=== PATIENT | female | born 1975 | race Caucasian/White ===

== ENCOUNTER 2017-02-12 01:29 | Inpatient (IN) | payer OTHER ==
--- NOTE | 2017-01-28 16:05 | History & Physical Pre-Op ---
General Information and [facility] MD Statement: I have seen and personally examined ARIANA THOMAS and documented this H&P. The patient is a 41 year old F who presented with a patient stated chief complaint of low back pain, radiaitng to her right leg, anteriorly and posteriorly to her knee, as well as neck pain, radiating to her right arm with tinglng. Source of Information: patient, old records Exam Limitations: no limitations History of Present Illness: Ariana is a 41-year-old female who has been complaining of progressively worsening low back pain, radiating to her right leg, posteriorly to her knee. She denies any numbness or weakness in her lower extremities but does state the pain is a 6/10 in intensity daily. She denies any bowel or bladder changes. She has had these symptoms, ongoing over the last 15 years but admits to worsening over the last several months. She states the pain is bilateral in her low back, which is worse when bending. She has tried anti-inflammatory medications, acupuncture, prolotherapy, physical therapy, cortisone injections, narcotics, and a TENS unit, all of which have given her minimal and temporary symptom relief. She also complains of neck pain, radiating to her right arm with limited range of motion of the cervical spine. She rates the pain in her neck as a 4-5/10 in intensity, describing it as "tension". She complains of occasional tingling in her right arm but no significant numbness. She denies any significant left sided symptoms. She denies any weakness in her upper extremities nor any dizziness. She does, however, complain of headaches. Due to the fact that Ariana has had progressively worsening symptoms and has failed to respond to conservative measures, she wants nothing more to do with nonsurgical treatment. Her MRI of the lumbar spine shows severe degenerative disc disease and stenosis at L4-5. Her MRI of the cervical spine shows stenosis at C4-5 and C5-6. She has been scheduled for a posterior lumbar decompression and fusion L4-5 with instrumentation, intradiscal cage, and iliac crest bone grafting on 02/12/2017. She was initially scheduled for an anterior cervical decompression fusion C4-C6 but would like to wait on the cervical procedure. She would like to continue with conservative measures. Allergies/Medications Allergies: Coded Allergies: lactose (Mild, GI symptoms 01/28/17) Penicillins (Reacted as a child 01/28/17) Home Med list Cetirizine HCl (Zyrtec) 10 MG TABLET 1 TAB PO DAILY ALLERIES (Reported) Compliance With Home Meds: GOOD Past History Medical History Blood Transfusion Hx: Yes (2 units with child ) Neurological: sinus headaches EENT: allergies, sinusitis Cardiovascular: NONE Respiratory: NONE Gastrointestinal: NONE Hepatic: NONE Renal: NONE Musculoskeletal: chronic back pain, disk herniation, degen joint disease, osteoarthritis, sciatica, spinal stenosis Psychiatric: NONE Endocrine: hyperthyroidism Blood Disorders: anemia Cancer(s): NONE TERMINAL GAUGER SUPERVISOR/Reproductive: NONE Surgical History Pertinent Surgical History: s/p sinus surgery, s/p dental surgery Past Family/Social History Family History Relations & Conditions if any MOTHER (Hyperthyroidism ASCVD). Age 62. FATHER (ASCVD, DM, COPD, TIA, [place], Eye disorders). Age 63. Psychosocial History Where Do You Live? Home Who Do You Live With? spouse, child Primary Language: Botswan[place] Smoking Status: Never Smoked ETOH Use: occasional use Illicit Drug Use: denies illicit drug use Other Social History: with 1 9y/o son Employment History Employment: Employed Profession/Employer: narcotics agent Review of Systems Review of Systems: Remarkable for the above complaints. Exam & Diagnostic Data Last 24 Hrs of Vital Signs/I&O Height: 5' 3.5" Weight: 162lbs Physical Exam General Appearance Alert, Oriented X3, No Acute Distress Skin No Rashes, No Breakdown, No Significant Lesion HEENT Atraumatic, PERRLA, EOMI, Mucous Membr. moist/pink Neck Supple, No JVD, No thryomegaly, +2 Carotid Pulse wo Bruit, No LAD Lymphatic Cervical nl Cardiovascular Regular Rate, Normal S1, Normal S2, No Murmurs Lungs Clear to Auscultation, Normal Air Movement Abdomen Normal Bowel Sounds, Soft, No Tenderness, No Masses Neurological Normal Gait, Normal Speech, Strength at 5/5 X4 Ext, Normal Tone, Sensation Intact, Reflexes 2+, +SLR on the right Extremities No Clubbing, No Cyanosis, No Edema, Normal Pulses Vascular Normal Pulses Last 24 Hrs of Labs/Loyd: Laboratory Tests 02/12/17 0622: Urine Test NEGATIVE Medication List Current Psychiatric Med(s): FeSO4 325mg daily Zyrtec 10mg daily Femien(BCP) daily Advil/Naproxen prn-stopped Tylenol prn pain MVI Calcium/Vit. D daily Assessment/Plan Assessment/Plan: Assessment: 1. Severe DDD/stenosis at L4-5 2. Stenosis at C4-5 and C5-6 Plan: Ariana is scheduled for a posterior lumbar decompression and fusion L4-5 with instrumentation and iliac crest bone grafting on 02/12/2017. She has decided to stage and postpone her anterior cervical decompression and fusion C4-C6 with instrumentation and iliac crest bone grafting for a later date. We discussed the posterior lumbar procedure in full detail as well as the pre-and postoperative course, follow-up care, and anticipated recovery. We also discussed the do's and don'ts and postoperative discharge instructions. We discussed the benefits, alternatives, and risks, not to exclude, , paralysis, infection, bleeding, continued pain, failure of the surgery, need for future surgery, DVT, vascular injury, CSF leak, hoarseness, dysphagia, etc., and given these risks, she still wishes to proceed. She was seen by her primary care physician for preoperative clearance. She will stop all anti-inflammatory medications. Any changes in this patient's plan is based on this patient's outpatient clinical presentation. As Ranked By This Provider Problem List: 1. Hyperthyroidism 2. Seasonal allergies 3. Sinusitis 4. Anemia Copies To: Edil DELGADO,Piter Attending MD Review Statement Attending Statement Attending MD Statement: examined this patient, discuss w/resident/PA/COMPLIANCE COORDINATOR, agreed w/resident/PA/COMPLIANCE COORDINATOR, reviewed images
[~2017-02-12] VITALS: Ht 160 cm; Wt 72.6 kg
[2017-02-12] MEDS ORDERED: ZYRTEC10 M3 PO (06:43)
--- NOTE | 2017-02-12 12:00 | Operative Report ---
Operative/Inv Procedure Report Surgery Date: 02/12/17 Name of Procedure: Sacral laminectomies L4 L5 S1. Discectomy L4 5 L5-S1. Interdiscal cage implant and morselized bone autologous fusion L4 5 L5-S1. Resting of iliac crest right posterior. Lateral intertransverse process fusion L4 5 S1. Pedicle screw fusion bilaterally L4 L5 S1. Use of fluoroscopy neural lysis right L4 nerve root Pre-Operative Diagnosis: Spinal stenosis and anterolisthesis L4 5 L5-S1. Post-Operative Diagnosis: Same additional diagnosis osteoporosis intra-joint nerve roots L5 S1 right side Estimated Blood Loss: 200 Surgeon/Forging Die Sinker: Edil DELGADO,Piter Ashraf M.D. Anesthesia: general endotracheal tube Monitors: Neuro Operative/Procedure Note Note: After adequate general anesthesia the patient's placed in the prone position with all bony prominences padded. The back was sterilely prepped and draped the right anterior iliac crest included. An incision was made in the right posterior iliac crest and carried down lateral to the crest with electrocautery and the Loreta retractor was placed. Osteotomes and curettes used to collect cortical cancellus and cancellus autologous bone graft. During harvesting the bone graft osteoporosis was identified. Wound was irrigated packed with Gelfoam closed in layers with Vicryl suture with yanet in the skin. The midline incision was created sharply and carried down over the dorsal elements with electrocautery at the lumbosacral junction. A metallic object was placed and fluoroscopy was used to identify surgical level. Laminectomies and discectomy performed at L4 5 and L5-S1. The dissection medial to the L4 pedicle on the right side revealed a hyperactive nerve root. Decompression of L5 and S1 on the right side, joint nerve roots were identified exiting the L5-S1 foramen on the right side causing severe stenosis. He was created on that side discectomies were performed a decision was made to instrument both levels with interdiscal cages to avoid nerve compression and continued radiculopathy on the right side due to the conjoined nerve roots. After preparation of the L4 and L5 disc spaces with discectomy and debridement of the endplates trials were used and cages selected packed with autologous bone graft and tamped into position under fluoroscopy. Enterotomies were created and the pedicles of L4 5 and S1 bilaterally. The ball tip probe was used between instrument placement. Pedicle screws were placed with reasonable purchase and all 6 screws. Neuro monitoring was normal on all 6 screws. Screws used in AP and lateral plane during placement screws. Rods were contoured bolted to the screws compression was applied across the cages and the screws were locked. Bone graft was packed over the lateral intertransverse process region from L4 to S1 bilaterally as well as over the perforated facet joints which were perforated with a pencil point bur. A neuro lysis of the L4 nerve root on the right was performed due to its hyperirritability Gelfoam was laid over the laminotomy sites the wound was copiously irrigated closure lumbosacral fascia was performed with absorbable suture as was subcutaneous tissue the skin was closed yanet after placement of sterile dressings the patient was log rolled out of the stretcher.
--- NOTE | 2017-02-12 12:40 | Patient Discharge Instructions ---
Acute Coronary Syndrome Inclusion Criteria At DC or during hospital stay patient has or had the following: ACS DIAGNOSIS No Discharge Core Measures Meds if any: Prescribed or Continued at Discharge Meds if any: NOT Prescribed or Continued at Discharge Congestive Heart Failure Inclusion Criteria At DC or during hospital stay patient has or had the following: CHF DIAGNOSIS No Discharge Core Measures Meds if any: Prescribed or Continued at Discharge Meds if any: NOT Prescribed or Continued at Discharge Cerebrovascular accident Inclusion Criteria At DC or during hospital stay patient has or had the following: CVA/TIA Diagnosis No Discharge Core Measures Meds if any: Prescribed or Continued at Discharge Meds if any: NOT Prescribed or Continued at Discharge Venous thromboembolism Inclusion Criteria VTE Diagnosis No VTE Type NONE VTE Confirmed by (Test) NONE Discharge Core Measures - Per Current guidelines, there needs to be overlap - treatment for the first 5 days of Warfarin therapy. - If discharged on Warfarin prior to 5 days of - overlap therapy, the patient will need to be - assessed for post discharge needs including - *Post discharge parental anticoagulation - *Warfarin and/or parental anticoagulation education - *Follow up date to check INR post discharge At least 5 days overlap therapy as Inpatient No Meds if any: Prescribed or Continued at Discharge Note: Overlap Therapy is Warfarin and Anticoagulant Meds if any: NOT Prescribed or Continued at Discharge
[2017-02-12] MEDS ORDERED: OS-CAL 500+D31 EAC1 PO (12:43)
[2017-02-12] MEDS ORDERED: FERROUS SULFAT325 M2 PO (12:43)
[2017-02-12] MEDS ORDERED: MILK OF MA400 MG/52 PO (12:43)
[2017-02-12] MEDS ORDERED: MULTIVITAMINS1 EAC9 PO (12:43)
[2017-02-12] MEDS ORDERED: DULCOLAX10 M1 RC (12:43)
[2017-02-12] MEDS ORDERED: TYLENOL EXTRA500 M2 PO (12:43)
[2017-02-12] MEDS ORDERED: VITAMIN D31000 UNI2 PO (12:43)
[2017-02-12] MEDS ORDERED: PERCOCET 5-3251 EACH PO (12:43)
[2017-02-12] MEDS ORDERED: COLACE100 M1 PO (12:43)
--- NOTE | 2017-02-12 13:24 | RADIOLOGY REPORT ---
EXAMINATION: XR LUMBOSACRAL SPINE CLINICAL INFORMATION: Lumbar fusion L3-L4, L4-L5, L5-S1. COMPARISON: None TECHNIQUE: 3 intraoperative or scopic images of the lumbar spine. 2 views. Total dose 0.578 mGym2. Fluoroscopic time 0.3 minutes. FINDINGS: The submitted images demonstrate posterior fusion hardware at L4, L5, and S1. Interconnecting lisbeth noted on the right. Alignment is anatomic. Intervertebral disc spacers are noted. IMPRESSION: Fluoroscopic guidance for posterior fusion from L4 to S1. Please refer to operative report for further information.
[2017-02-12 14:01] VITALS: BP 116/80
--- NOTE | 2017-02-12 14:53 | PN- Orthopedic ---
Subjective Subjective: Awake, alert post op Pain is tolerable with meds Denies nausea, has not ambulated yet Objective Vital Signs and I&Os Vital Signs Date Time Temp Pulse Resp B/P B/P Pulse O2 O2 Flow FiO2 Mean Ox Delivery Rate 02/12 1401 97.4 76 18 116/80 99 Nasal 1.0L Cannula 02/12 1400 99 Nasal 2.0L Cannula Intake & Output 02/12 1600 02/12 0800 02/12 0000 02/11 1600 02/11 0800 02/11 0000 Intake Total 100 Output Total Balance 100 Intake, IV 100 Patient 160 lb 160 lb Weight Weight Reported by Patient Measurement Method Physical Exam: VSS, afebrile General: alert and oriented times three Chest: clear anteriorly bilaterally, RRR Abd: soft, good bs Ext: warm, no edema, positive sensate although somewhat numb BLE, good 5/5 JOHN BLE no calf tenderness, ALPS in place Wound: dressing dry Assessment/Plan Assessment/Plan 41yo female s/p L4-S1 morejon/fusion with icbg Pain management Abx 24 hrs PT ordered WBAT ALPS for dvt ppx and early ambulation Likely dc in 48 hours Core Measures Venous Thromboembolism VTE Risk Factors Surgery No Mechanical VTE Prophylaxis d/t N/A MechProphylax Ordered No VTE Pharm Prophylaxis d/t Surgical Contraindication (post op neurosurgery-)
[2017-02-12 22:52] VITALS: BP 118/72
[2017-02-13 06:35] VITALS: BP 118/64
[2017-02-13 09:29] LABS: ABSOLUTE BASOPHIL COUNT 0 /CUMM (0.0-0.2); ABSOLUTE LYMPH COUNT 0.9 /CUMM (1.2-3.4); MEAN PLATELET VOLUME 11.1 FL (7.4-10.4)
[2017-02-13 09:46] LABS: ABSOLUTE EOSINOPHIL COUNT 0 /CUMM (0.0-0.7); ABSOLUTE GRANULOCYTE CT 5.4 /CUMM (1.4-6.5); ABSOLUTE MONOCYTE COUNT 0.6 /CUMM (0.10-0.60); BASOPHIL % 0.2 % (0.0-2.0); EOSINOPHIL % 0.7 % (0-5); GRANULOCYTE % 77.3 % (42.2-75.2); MEAN CORPUSCULAR HGB 28.7 PG (27.0-31.0); MEAN CORPUSCULAR HGB CONC 33.9 G/DL (33.0-37.0); MEAN CORPUSCULAR VOLUME 84.6 FL (81.0-99.0); PLATELET COUNT 102 /CUMM (130-400); RBC DISTRIBUTION WIDTH 13.1 % (11.5-14.5)
[2017-02-13 09:52] LABS: HEMATOCRIT 27.1 % (37-47); RED BLOOD CELL CT 3.21 /CUMM (4.20-5.40)
[2017-02-13 14:46] VITALS: BP 118/62
--- NOTE | 2017-02-13 16:55 | PN- Orthopedic ---
Subjective Subjective: Patient c/o expected postop incisional pain. No leg pain. No N/V. No CP, SOB, fever/chills. Tolerating po. Voiding without difficulty. +Flatus. Tolerating Percocet. Review of Systems: Remarkable for the above complaints. Objective Vital Signs and I&Os Vital Signs Date Time Temp Pulse Resp B/P B/P Pulse O2 O2 Flow FiO2 Mean Ox Delivery Rate 02/13 1446 97.0 95 18 118/62 99 Room Air 02/13 1014 98.9 02/13 0635 98.1 70 18 118/64 98 Room Air 02/12 2252 98.2 80 18 118/72 100 Nasal 2.0L Cannula 02/12 2140 Room Air Intake & Output 02/13 1600 02/13 0800 02/13 0000 02/12 1600 02/12 0800 02/12 0000 Intake Total 800 1210 1260 100 Output Total 850 1700 250 Balance -50 -490 1010 100 Intake, IV 850 300 100 Intake, Oral 800 360 960 Output, Urine 850 1700 250 Patient 160 lb 160 lb Weight Weight Reported by Patient Measurement Method Physical Exam General Appearance: well developed/nourished, alert, awake, mild distress Respiratory: normal breath sounds, no respiratory distress Cardiovascular: regular rate/rhythm Abdomen: normal bowel sounds, soft, non-tender Back: Incision C/D/I. Dressing changed. Extremities: no edema, No calf tenderness. Neurologic/Psychiatric: Neurovascularly intact with no new or worsening gross motor or sensory loss. Skin: intact, normal color, warm/dry Assessment/Plan Assessment/Plan Assessment: S/p PLDF L4-S1 with Instr./ICBG Plan: Continue po Percocet prn pain Ambulate with PT/Nursing. Will F/U in am. Possible D/C tomorrow. Ice prn. Bowel regimen. Problem List: 1. Anemia 2. Sinusitis 3. Seasonal allergies 4. Hyperthyroidism Core Measures Venous Thromboembolism VTE Risk Factors Surgery No Mechanical VTE Prophylaxis d/t N/A MechProphylax Ordered No VTE Pharm Prophylaxis d/t Surgical Contraindication (post op neurosurgery-) Attending MD Review Statement Attending Statement Attending MD Statement: examined this patient, discuss w/resident/PA/MEDICAL COLLECTIONS, agreed w/resident/PA/MEDICAL COLLECTIONS
[2017-02-13 22:16] VITALS: BP 112/66
[2017-02-14 07:00] VITALS: BP 100/62
[2017-02-14 14:55] VITALS: BP 110/64
--- NOTE | 2017-02-14 15:45 | PN- Orthopedic ---
Subjective Subjective: Patient c/o expected postop incisional pain. No leg pain. No preop pain. Alfredito. po. No N/V, fever, chills, CP, SOB. Alfredito. pain meds. Ambulated with PT. + voiding without difficulty. + flatus. No BM yet. Review of Systems: Remarkable for the above complaints. Objective Vital Signs and I&Os Vital Signs Date Time Temp Pulse Resp B/P B/P Pulse O2 O2 Flow FiO2 Mean Ox Delivery Rate 02/14 1455 97.8 98 20 110/64 100 Room Air 02/14 0700 98.2 96 18 100/62 95 Room Air 02/13 2216 97.5 88 20 112/66 98 Room Air Intake & Output 02/14 1600 02/14 0800 02/14 0000 02/13 1600 02/13 0800 02/13 0000 Intake Total 082 137 1728 1260 Output Total 950 443 018 2634 250 Balance -950 350 -50 -490 1010 Intake, IV 850 300 Intake, Oral 750 800 360 960 Output, Urine 950 151 744 1372 250 Physical Exam General Appearance: well developed/nourished, alert, awake, mild distress Respiratory: normal breath sounds, no respiratory distress Cardiovascular: regular rate/rhythm Abdomen: normal bowel sounds, soft, non-tender Back: Incision C/D/I. Extremities: Neurovascularly intact and stable with no new or worsening gross motor or sensory loss. Skin: intact, normal color, warm/dry Assessment/Plan Assessment/Plan Assessment: S/p PLDF L4-S1 with Instr. Plan: Continue Percocet Ambulate with PT Continue ice prn Possible D/C home in am tomorrow. Bowel regimen Problem List: 1. Anemia 2. Sinusitis 3. Seasonal allergies 4. Hyperthyroidism Core Measures Venous Thromboembolism VTE Risk Factors Surgery No Mechanical VTE Prophylaxis d/t N/A MechProphylax Ordered No VTE Pharm Prophylaxis d/t Surgical Contraindication (post op neurosurgery-) Attending MD Review Statement Attending Statement Attending MD Statement: discuss w/resident/PA/ROUSTABOUT PUSHER, agreed w/resident/PA/ROUSTABOUT PUSHER
[2017-02-14 23:11] VITALS: BP 108/70
[2017-02-15 06:55] VITALS: BP 92/56
--- NOTE | 2017-02-15 12:37 | Surgical Discharge Summary ---
Visit Information Visit Dates Admission Date: 02/12/17 Discharge Date: 02/16/2016 History of Present Illness Chief Complaint: The patient is a 41 year old F who presented with a patient stated chief complaint of low back pain, radiaitng to her right leg, anteriorly and posteriorly to her knee, as well as neck pain, radiating to her right arm with tinglng. See H and P Medical History Blood Transfusion Hx: Yes (2 units with child ) Neurological: sinus headaches EENT: allergies, sinusitis Cardiovascular: NONE Respiratory: asthma Gastrointestinal: NONE Hepatic: NONE Renal: NONE Musculoskeletal: chronic back pain, disk herniation, degen joint disease, osteoarthritis, sciatica, spinal stenosis Psychiatric: NONE Endocrine: hyperthyroidism Blood Disorders: anemia Cancer(s): NONE NURSE PRACTITIONER PHYSICIANS ASSISTANT/Reproductive: NONE History of MRSA: No History of VRE: No History of CDIFF: No Isolation History: Standard Surgical History Pertinent Surgical History: s/p sinus surgery s/p dental surgery Family History Relations & Conditions If Any: MOTHER (Hyperthyroidism ASCVD). Age 62. FATHER (ASCVD, DM, COPD, TIA, [place], Eye disorders). Age 63. Psychosocial History Where Do You Live? Home Who Do You Live With? Patient/Self Services at Home: None ETOH Use: occasional use Other Addictive Behavior: with 1 9y/o son Review of Systems: See H and P Hospital Course Course Attending Physician: Piter Solo MD Primary Care Physician: Unknown Hospital Course: Pt was admitted and on 02/12/17 underwent a Sacral laminectomies L4 L5 S1. Discectomy L4 5 L5-S1. Interdiscal cage implant and morselized bone autologous fusion L4 5 L5-S1. Resting of iliac crest right posterior. Lateral intertransverse process fusion L4 5 S1. Pedicle screw fusion bilaterally L4 L5 S1. Use of fluoroscopy neural lysis right L4 nerve root by Dr Asa Solo. She tolerated the procedure and was brought to the PACU in stable condition. Over the next few days her pain was controlled with medication, she worked with PT and slowly began to ambulate. She c/o expected postop incisional pain. No leg pain. No preop pain. Alfredito. po. No N/V, fever, chills, CP, SOB. Alfredito. pain meds. was voiding without difficulty. + flatus. Her discharge order was placed on 02/15/2017 per Kelly SCHULTE Allergies: Coded Allergies: lactose (Mild, GI symptoms 01/28/17) Penicillins (Reacted as a child 01/28/17) Disposition Summary Disposition Principal Diagnosis: Severe DDD/stenosis at L4-5 and Stenosis at C4-5 and C5-6 Additional Diagnosis: asthma, anemia Discharge Disposition: home or self care Discharge Instructions General Discharge Information Code Status: Full Code Patient's Diet: regular Patient's Activity: wbat Follow-Up Instructions/Appts: Instructions given regarding follow up with Dr Solo service Medications at Discharge Discharge Medications: Continue taking these medications: Cetirizine HCl (Zyrtec) 10 MG TABLET 1 Tablet ORAL DAILY Start taking the following new medications: Ferrous Sulfate (Ferrous Sulfate) 325 MG (65 MG IRON) TABLET. 325 Milligram ORAL DAILY Qty = 30 No Refills Acetaminophen (Tylenol Extra Strength) 500 MG TABLET 1 Tablet ORAL THREE TIMES DAILY as needed for TEMP>101 Qty = 90 No Refills Bisacodyl (Dulcolax) 10 MG SUPP.RECT 1 Suppository RECTAL DAILY as needed for CONSTIPATION Qty = 10 No Refills Calcium Carbonate/Vitamin D3 (Os-Roger 500+D3 Caplet) 500 MG-200 TABLET 1 Tablet ORAL TWICE DAILY Qty = 60 No Refills Cholecalciferol (Vitamin D3) 1,000 UNIT TABLET 1 Tablet ORAL DAILY Qty = 30 No Refills Docusate Sodium (Colace) 100 MG CAPSULE 1 Capsule ORAL TWICE DAILY as needed for CONSTIPATION Qty = 60 No Refills Magnesium Hydroxide (Milk Of Magnesia) 400 MG/5 ML ORAL.SUSP 5 Milliliters ORAL EVERY 8 HOURS NEEDED as needed for CONSTIPATION Qty = 300 No Refills Multiple Vitamin (Multivitamins) 1 EACH TABLET 1 Tablet ORAL DAILY Qty = 30 No Refills Oxycodone HCl/Acetaminophen (Percocet 5-325 MG Tablet) 5 MG-325 MG TABLET 1-2 Tablet ORAL EVERY 4-6 HOURS as needed for PAIN Qty = 90 No Refills
[2017-02-15 13:44] VITALS: BP 124/80
== END 2017-02-15 16:30 | DRG 455 ==
LOC: SDA 01:29 → EDBD 07:00 → ENRESERV 12:46 → ENTRNSPT 13:20 → EDTRNSPTSTS 13:31 → 2NB 13:45 → CMPTRNSPT 13:46 → ENPENDDIS 02-15 12:28 → 2NB 02-15 16:30
PROVIDERS: Orthopaedic Surgery Orthopaedic Surgery of the Spine
PROC: 0SG00AJ Fusion of Lumbar Vertebral Joint with Interbody Fusion Device, Posterior Approach, Anterior Column, Open Approach (ICD-10-PCS; principal; 2017-02-12)
PROC: 0SG0071 Fusion of Lumbar Vertebral Joint with Autologous Tissue Substitute, Posterior Approach, Posterior Column, Open Approach (ICD-10-PCS; 2017-02-12)
PROC: 0SG30AJ Fusion of Lumbosacral Joint with Interbody Fusion Device, Posterior Approach, Anterior Column, Open Approach (ICD-10-PCS; 2017-02-12)
PROC: 0SG3071 Fusion of Lumbosacral Joint with Autologous Tissue Substitute, Posterior Approach, Posterior Column, Open Approach (ICD-10-PCS; 2017-02-12)
PROC: 0SB20ZZ Excision of Lumbar Vertebral Disc, Open Approach (ICD-10-PCS; 2017-02-12)
PROC: 0SB40ZZ Excision of Lumbosacral Disc, Open Approach (ICD-10-PCS; 2017-02-12)
PROC: 01NB0ZZ Release Lumbar Nerve, Open Approach (ICD-10-PCS; 2017-02-12)
PROC: 0QB20ZZ Excision of Right Pelvic Bone, Open Approach (ICD-10-PCS; 2017-02-12)
PROC: 4A11X4G Monitoring of Peripheral Nervous Electrical Activity, Intraoperative, External Approach (ICD-10-PCS; 2017-02-12)
DX: M48.061 Spinal stenosis, lumbar region without neurogenic claudication (principal); M48.02 Spinal stenosis, cervical region; M51.36 Other intervertebral disc degeneration, lumbar region; D64.9 Anemia, unspecified; M19.90 Unspecified osteoarthritis, unspecified site; E05.90 Thyrotoxicosis, unspecified without thyrotoxic crisis or storm
CPT/HCPCS: 2NBSP; 36415; 72100; 81025; 97116-GO; 97161-GP; 97530-GO; C1713; J0131; J1644; J2405; J3250; J3490; J7120